=== PATIENT | female | born 1990 | race American Indian/Alaskan Native ===

== ENCOUNTER 2018-06-01 12:01 | Emergency (ER) | payer MEDICAID ==
[2018-06-01 12:42] VITALS: BP 164/84
[2018-06-01 13:01] LABS: Bacteria,Urine 1+ /HPF (Negative); Bilirubin,Urine NEG (Negative); Blood,Urine NEG (Negative); Color,Urine Amber (Yellow); Hyaline Casts,Urine 1 /LPF; Mucus,Urine 2+ /HPF; Protein,Urine <15 mg/dL mg/dL (Negative)
[2018-06-01] MEDS ORDERED: NACL 0.9% 1000 ML 1,000 ML IV ONE ×2 (13:10→13:11)
[2018-06-01] MEDS ORDERED: REGLAN IV ONE (13:11)
--- NOTE | 2018-06-01 13:17 | Emergency Department Report ---
HPI - General Chief Complaint: Nausea/Vomiting/Diarrhea Time Seen by Provider: 06/01/18 13:04 - HPI HPI: Room 17 The patient is a 27-year-old female presenting with a chief complaint of nausea vomiting. Patient states for the past 5 days she's had intractable nausea and vomiting has been unable to keep anything down. Patient states the past 3 days she is constant right-sided abdominal pain. The patient states she is 3 months and was she contacted her [facility] [employer] this morning she was told to come to the ED for evaluation. Patient states she began feeling dizzy. Patient denies fever, dysuria or vaginal bleeding Location: Gastrointestinal system Duration: 5 days Quality: Nausea Severity: Moderate Modifying factors: [see above] Context: [see above] Mode of transportation: [not driving] ED Past Medical Hx - Past Medical History Hx Diabetes: Yes Hx Seizures: Yes (EPILESY) Hx Asthma: Yes - Surgical History Past Surgical History?: No - Family History Family history: no significant - Social History Smoking Status: Never Smoker Substance Use Type: None (denies illicit drug use) - Medications Home Medications: Home Medications Medication Instructions Recorded Confirmed Last Taken Type Metoclopramide [Reglan] 10 mg PO QID PRN #30 tab 06/01/18 Unknown Rx ED Review of Systems ROS: Stated complaint: 3MONTHS /LIGHTHEADED/N/V Other details as noted in HPI Constitutional: no symptoms reported Eyes: denies: eye pain ENT: denies: throat pain Respiratory: no symptoms reported Cardiovascular: denies: chest pain Endocrine: no symptoms reported Gastrointestinal: abdominal pain, nausea, vomiting Genitourinary: denies: dysuria Musculoskeletal: denies: back pain Neurological: denies: headache Physical Exam - Physical Exam Vital Signs: Vital Signs 06/01/18 06/01/18 06/01/18 12:17 12:37 12:38 Temperature 98.4 F Pulse Rate 81 Respiratory 18 Rate Blood Pressure 138/81 164/84 O2 Sat by Pulse 100 100 100 Oximetry 06/01/18 12:39 Temperature Pulse Rate Respiratory Rate Blood Pressure 164/84 O2 Sat by Pulse 100 Oximetry Physical Exam: GENERAL: The patient is well-developed well-nourished female lying on stretcher not appearing to be in acute distress. [] HEENT: Normocephalic. Atraumatic. Extraocular motions are intact. Patient has moist mucous membranes. NECK: Supple. Trachea midline CHEST/LUNGS: Clear to auscultation. There is no respiratory distress noted. HEART/CARDIOVASCULAR: Regular. There is no tachycardia. There is no gallop rub or murmur. ABDOMEN: Abdomen is soft, with mild discomfort to palpation in the suprapubic and right lower quadrant. There is no rebound or guarding patient has normal bowel sounds. There is no abdominal distention. SKIN: There is no rash. There is no edema. There is no diaphoresis. NEURO: The patient is awake, alert, and oriented. The patient is cooperative. The patient has normal speech MUSCULOSKELETAL: There is no evidence of acute injury. ED Course Vital Signs 06/01/18 06/01/18 06/01/18 12:17 12:37 12:38 Temperature 98.4 F Pulse Rate 81 Respiratory 18 Rate Blood Pressure 138/81 164/84 O2 Sat by Pulse 100 100 100 Oximetry 06/01/18 12:39 Temperature Pulse Rate Respiratory Rate Blood Pressure 164/84 O2 Sat by Pulse 100 Oximetry - Reevaluation(s) Reevaluation #1: 06/01/18 17:10 Patient states she feels improved and is able to keep down food and liquids. Her comprehensive metabolic panel needs to be redrawn as her first sample was not resulted. Patient verbalized understanding and states she does not wish to wait to have blood redrawn. I explained the importance of evaluating her electrolytes giving her intractable nausea and vomiting. Patient verbalized understanding but states she would like to leave the hospital AGAINST MEDICAL AD VICE ED Medical Decision Making - Lab Data Result diagrams: 06/01/18 14:00 06/01/18 14:00 Laboratory Tests 06/01/18 06/01/18 06/01/18 12:26 12:34 12:44 WBC RBC Hgb Hct MCV MCH MCHC RDW Plt Count Lymph % (Auto) Fleming % (Auto) Eos % (Auto) Baso % (Auto) Lymph # Fleming # Eos # Baso # Seg Neutrophils % Seg Neutrophils # Sodium Potassium Chloride Carbon Dioxide Anion Gap BUN Creatinine Estimated GFR BUN/Creatinine Ratio Glucose POC Glucose 78 75 Calcium Total Bilirubin AST ALT Alkaline Phosphatase Total Protein Albumin Albumin/Globulin Ratio Lipase HCG, Quant Urine Color Rosie Urine Turbidity Slightly-cloudy Urine pH 6.0 Ur Specific [place] 1.025 Urine Protein <15 mg/dl Urine Glucose (UA) Neg Urine Ketones Tr Urine Blood Neg Urine Nitrite Neg Urine Bilirubin Neg Urine Urobilinogen 2.0 Ur Leukocyte Esterase Neg Urine WBC (Auto) 1.0 Urine RBC (Auto) 3.0 U Epithel Cells (Auto) 11.0 Urine Bacteria (Auto) 1+ Hyaline Casts 1 Urine Mucus 2+ 06/01/18 06/01/18 06/01/18 14:00 14:00 14:00 WBC 4.6 RBC 4.49 Hgb 12.3 Hct 37.3 MCV 83 MCH 27 L MCHC 33 RDW 16.3 H Plt Count 282 Lymph % (Auto) 30.2 Fleming % (Auto) 13.0 H Eos % (Auto) 0.2 Baso % (Auto) 0.4 Lymph # 1.4 Fleming # 0.6 Eos # 0.0 Baso # 0.0 Seg Neutrophils % 56.2 Seg Neutrophils # 2.6 Sodium TNR Potassium TNR Chloride TNR Carbon Dioxide TNR Anion Gap TNR BUN 7 Creatinine 0.7 Estimated GFR > 60 BUN/Creatinine Ratio 10 Glucose TNR POC Glucose Calcium TNR Total Bilirubin TNR AST 93 H ALT TNR Alkaline Phosphatase TNR Total Protein TNR Albumin TNR Albumin/Globulin Ratio TNR Lipase TNR HCG, Quant 23379 H Urine Color Urine Turbidity Urine pH Ur Specific [place] Urine Protein Urine Glucose (UA) Urine Ketones Urine Blood Urine Nitrite Urine Bilirubin Urine Urobilinogen Ur Leukocyte Esterase Urine WBC (Auto) Urine RBC (Auto) U Epithel Cells (Auto) Urine Bacteria (Auto) Hyaline Casts Urine Mucus - Radiology Data Radiology results: report reviewed (pelvic ultrasound), image reviewed (pelvic ultrasound) [address] [address] Ultrasound Report Signed Patient: ROSIE MIR MR#: [id number] : 1990 Acct:[id number] Age/Sex: 27 / F ADM Date: 06/01/18 Loc: ED Attending Dr: Ordering Physician: TAHIRA RODAS MD Date of Service: 06/01/18 Procedure(s): US OB <= 14 weeks fetus Accession Number(s): [id number] cc: TAHIRA RODAS MD FINAL REPORT EXAM: US OB lt; = 14 WEEKS FETUS HISTORY: nausea vomiting, right-sided pain TECHNIQUE: Transabdominal and transvaginal OB ultrasound. PRIORS: None currently available. FINDINGS: Single intrauterine dates 7.3 weeks by crown rump length. BRISA equals January 15, 2019. This is 1 day younger compared to the prior ultrasound and is within normal limits. Intrauterine gestational sac, yolk sac, and pole. No subchorionic bleed. heart rate: 130 BPM. Uterus: 12.8 x 8.0 x 8.7 cm. Multiple fibroids. Largest is at the right fundus measuring 8.4 x 7.5 x 8.7 cm. Right ovary: 2.1 x 1.7 x 2.2 cm. Within normal limits. Left Ovary: Obscured. Adnexal: Unremarkable. No free fluid. IMPRESSION: Single live intrauterine . Uterine fibroids. Left ovary is obscured. Transcribed By: TYM Dictated By: BEA KIM MD Electronically Authenticated By: BEA KIM MD Signed Date/Time: 06/01/181700 DD/ 02 TD/TT: 06/01/181702 - Differential Diagnosis hyperemesis gravidarum, UTI, pancreatitis Critical care attestation.: If time is entered above; I have spent that time in minutes in the direct care of this critically ill patient, excluding procedure time. ED Disposition Clinical Impression: Hyperemesis gravidarum Disposition: LEFT AGAINST MED ADVICE Is pt being admited?: No Does the pt Need Aspirin: No Condition: Undetermined Instructions: Hyperemesis Gravidarum (ED) Additional Instructions: Return to the emergency department immediately should you develop worsening symptoms, fever, inability to tolerate food or liquid or any other concerns. Prescriptions: Metoclopramide [Reglan] 10 mg PO QID PRN #30 tab PRN Reason: Nausea Referrals: PRIMARY CARE, [Primary Care Provider] - 3-5 Days Time of Disposition: 17:13 (patient leaving AMA)
[2018-06-01 14:30] LABS: Basophils % (Auto) 0.4 % (0.0-1.8); Eosinophils % (Auto) 0.2 % (0.0-4.3); Hematocrit 37.3 % (30.3-42.9); Hemoglobin 12.3 gm/dl (10.1-14.3); Lymphocytes # (Auto) 1.4 K/mm3 (1.2-5.4); Lymphocytes % (Auto) 30.2 % (13.4-35.0); Mean Corpuscular HGB Conc 33 % (30-34); Mean Corpuscular Volume 83 fl (79-97); Monocytes # (Auto) 0.6 K/mm3 (0.0-0.8); Platelet Count 282 K/mm3 (140-440); Red Blood Count 4.49 M/mm3 (3.65-5.03); Red Cell Distribution Width 16.3 % (13.2-15.2)
[2018-06-01 14:47] LABS: BUN/Creatinine Ratio 10; Blood Urea Nitrogen 7 mg/dL (7-17); Hemolysis Index 1121
[2018-06-01 15:11] LABS: Alanine Aminotransferase TNR units/L (7-56); Albumin TNR g/dL (3.9-5); Calcium TNR mg/dL (8.4-10.2)
--- NOTE | 2018-06-01 17:01 | Ultrasound Report ---
FINAL REPORT EXAM: US OB <= 14 WEEKS FETUS HISTORY: nausea vomiting, right-sided pain TECHNIQUE: Transabdominal and transvaginal OB ultrasound. PRIORS: None currently available. FINDINGS: Single intrauterine dates 7.3 weeks by crown rump length. BRISA equals January 15, 2019. Thi s is 1 day younger compared to the prior ultrasound and is within normal limits. Intrauterine gestational sac, yolk sac, and pole. No subchorionic bleed. heart rate: 130 BPM. Uterus: 12.8 x 8.0 x 8.7 cm. Multiple fibroids. Largest is at the right fundus measuring 8.4 x 7.5 x 8.7 cm. Right ovary: 2.1 x 1.7 x 2.2 cm. Within normal limits. Left Ovary: Obscured. Adnexal: Unremarkable. No free fluid. IMPRESSION: Single live intrauterine . Uterine fibroids. Left ovary is obscured.
--- NOTE | 2018-06-01 17:01 | Ultrasound Report ---
FINAL REPORT EXAM: US OB TRANSVAGINAL HISTORY: nausea vomiting, right-sided pain TECHNIQUE: Transabdominal and transvaginal OB ultrasound. PRIORS: None currently available. FINDINGS: Single intrauterine dates 7.3 weeks by crown rump length. BRISA equals January 15, 2019. Thi s is 1 day younger compared to the prior ultrasound and is within normal limits. Intrauterine gestational sac, yolk sac, and pole. No subchorionic bleed. heart rate: 130 BPM. Uterus: 12.8 x 8.0 x 8.7 cm. Multiple fibroids. Largest is at the right fundus measuring 8.4 x 7.5 x 8.7 cm. Right ovary: 2.1 x 1.7 x 2.2 cm. Within normal limits. Left Ovary: Obscured. Adnexal: Unremarkable. No free fluid. IMPRESSION: Single live intrauterine . Uterine fibroids. Left ovary is obscured.
== END 2018-06-01 17:32 | disposition left against medical advice (07) ==
LOC: ED 12:01
DX: O21.0 Mild hyperemesis gravidarum (principal); O99.511 Diseases of the respiratory system complicating pregnancy, first trimester; O99.351 Diseases of the nervous system complicating pregnancy, first trimester; G40.909 Epilepsy, unspecified, not intractable, without status epilepticus; O24.911 Unspecified diabetes mellitus in pregnancy, first trimester; Z3A.01 Less than 8 weeks gestation of pregnancy; R10.2 Pelvic and perineal pain
CPT/HCPCS: 36415; 76801; 76817; 80053; 81001; 82962; 84702; 85025; 96361; 96374; 99284; J2765; J7030

== ENCOUNTER 2018-08-16 10:46 | Emergency (ER) | payer MEDICAID ==
[2018-08-16 10:52] VITALS: BP 141/83
[2018-08-16] MEDS ORDERED: TYLENOL PO ONE (11:19)
--- NOTE | 2018-08-16 11:43 | Emergency Department Report ---
ED General Adult HPI - General Chief complaint: Abdominal Pain Stated complaint: 19WKS /TRIPPED AND FELL Time Seen by Provider: 08/16/18 11:15 Source: patient Mode of arrival: Wheelchair Limitations: No Limitations - History of Present Illness Initial comments: Patient is a 28-year-old female possibly 19 weeks who suffered a fall prior to arrival. Patient states that she was walking upstairs and she slipped and hit her right side on the stairs. Patient states the pain is 6 out of 10 in severity hers worse with movement. Patient denies any head injury or loss consciousness. Patient states she did not hit her stomach and she has had no vaginal bleeding. Severity scale (0 -10): 8 - Related Data Previous Rx's Medication Instructions Recorded Last Taken Type Metoclopramide [Reglan] 10 mg PO QID PRN #30 tab 06/01/18 Unknown Rx Cyclobenzaprine [Flexeril] 10 mg PO TID PRN #12 tablet 08/16/18 Unknown Rx Allergies Allergy/AdvReac Type Severity Reaction Status Date / Time No Known Allergies Allergy Unverified 06/01/18 12:16 ED Review of Systems ROS: Stated complaint: 19WKS /TRIPPED AND FELL Other details as noted in HPI Comment: All other systems reviewed and negative ED Past Medical Hx - Past Medical History Hx Diabetes: Yes Hx Seizures: Yes (EPILESY) Hx Asthma: Yes - Surgical History Past Surgical History?: No - Social History Smoking Status: Never Smoker Substance Use Type: None - Medications Home Medications: Home Medications Medication Instructions Recorded Confirmed Last Taken Type Metoclopramide [Reglan] 10 mg PO QID PRN #30 tab 06/01/18 Unknown Rx Cyclobenzaprine [Flexeril] 10 mg PO TID PRN #12 tablet 08/16/18 Unknown Rx ED Physical Exam - General Limitations: No Limitations General appearance: alert, in no apparent distress - Head Head exam: Present: atraumatic, normocephalic - Eye Eye exam: Present: normal appearance - ENT ENT exam: Present: mucous membranes moist - Neck Neck exam: Present: normal inspection - Respiratory Respiratory exam: Present: normal lung sounds bilaterally, chest wall tenderness (right lateral lower ribs. Patient has point tenderness there is no tenderness along the ribs. No external bruising.). Absent: respiratory distress, wheezes, rales, rhonchi - Cardiovascular Cardiovascular Exam: Present: regular rate, normal rhythm, normal heart sounds. Absent: systolic murmur, diastolic murmur, rubs, gallop - GI/Abdominal GI/Abdominal exam: Present: soft, normal bowel sounds. Absent: distended, tenderness, guarding, rebound - Extremities Exam Extremities exam: Present: normal inspection - Back Exam Back exam: Present: normal inspection - Neurological Exam Neurological exam: Present: alert, oriented X3 - Psychiatric Psychiatric exam: Present: normal affect, normal mood - Skin Skin exam: Present: warm, dry, intact, normal color. Absent: rash ED Course Vital Signs 08/16/18 08/16/18 10:48 11:25 Temperature 98 F Pulse Rate 93 H Respiratory 16 18 Rate Blood Pressure 141/83 O2 Sat by Pulse 96 Oximetry ED Medical Decision Making - Medical Decision Making Patient's tenderness is minimal. Patient likely with rib contusion as opposed to a rib fracture. Pressing on her anterior posterior chest together there is no pain at the lateral ribs. Lungs are clear to auscultation. Patient be treated for muscular skeletal pain to be discharged home. Critical care attestation.: If time is entered above; I have spent that time in minutes in the direct care of this critically ill patient, excluding procedure time. ED Disposition Clinical Impression: Rib contusion Qualifiers: Encounter type: initial encounter Laterality: right Qualified Code(s): S20.211A - Contusion of right front wall of thorax, initial encounter Disposition: DC-01 TO HOME OR SELFCARE Is pt being admited?: No Does the pt Need Aspirin: No Condition: Stable Instructions: Costochondritis (ED) Time of Disposition: 11:46
== END 2018-08-16 11:51 | disposition home or self-care (01) ==
LOC: ED 10:46
DX: O9A.212 Injury, poisoning and certain other consequences of external causes complicating pregnancy, second trimester (principal); S20.211A Contusion of right front wall of thorax, initial encounter; O24.112 Pre-existing type 2 diabetes mellitus, in pregnancy, second trimester; E11.9 Type 2 diabetes mellitus without complications; Z3A.19 19 weeks gestation of pregnancy
CPT/HCPCS: 99282

== ENCOUNTER 2018-08-27 11:09 | Outpatient (CLI) | payer MEDICAID ==
[2018-08-27] MEDS ORDERED: LACTATED RINGERS 500 ML IV ONE (12:13)
[2018-08-27 12:27] LABS: Basophils % (Auto) 0.4 % (0.0-1.8); Eosinophils # (Auto) 0.2 K/mm3 (0.0-0.4); Eosinophils % (Auto) 2.6 % (0.0-4.3); Hematocrit 33.8 % (30.3-42.9); Hemoglobin 11.3 gm/dl (10.1-14.3); Lymphocytes # (Auto) 1.6 K/mm3 (1.2-5.4); Lymphocytes % (Auto) 24.3 % (13.4-35.0); Mean Corpuscular HGB Conc 34 % (30-34); Mean Corpuscular Volume 83 fl (79-97); Monocytes # (Auto) 0.7 K/mm3 (0.0-0.8); Monocytes % (Auto) 10.4 % (0.0-7.3); Platelet Count 255 K/mm3 (140-440); Red Blood Count 4.08 M/mm3 (3.65-5.03); Red Cell Distribution Width 15.8 % (13.2-15.2)
[2018-08-27 12:48] LABS: Alanine Aminotransferase 12 units/L (7-56); Albumin 3.5 g/dL (3.9-5); BUN/Creatinine Ratio 5; Blood Urea Nitrogen 2 mg/dL (7-17); Calcium 8.6 mg/dL (8.4-10.2); Hemolysis Index 21
[2018-08-27] MEDS ORDERED: ZOFRAN IV ONE (13:47)
[2018-08-28 18:54] VITALS: BP 120/57
== END 2018-08-27 15:18 | disposition home or self-care (01) ==
LOC: TRG 11:09
PROVIDERS: ATTEND Obstetrics & Gynecology
DX: O21.0 Mild hyperemesis gravidarum (principal); O47.03 False labor before 37 completed weeks of gestation, third trimester; Z72.89 Other problems related to lifestyle; Z3A.20 20 weeks gestation of pregnancy
CPT/HCPCS: 36415; 80053; 85025; J7120; 96360; 96374; J2405

== ENCOUNTER 2018-11-05 19:34 | Outpatient (CLI) | payer MEDICAID ==
[2018-11-05] MEDS ORDERED: LACTATED RINGERS 1,000 ML IV ONE ×2 (21:30→23:45)
[2018-11-05 23:06] LABS: Bilirubin,Urine NEG (Negative); Blood,Urine NEG (Negative); Color,Urine Straw (Yellow); Mucus,Urine FEW /HPF; Protein,Urine <15 mg/dL mg/dL (Negative); Urobilinogen,Urine < 2.0 mg/dL (<2.0)
[2018-11-05] MEDS ORDERED: BRETHINE SUB-Q ONE (23:11)
[2018-11-05] MEDS ORDERED: BRETHINE ONE (23:11)
[2018-11-05 23:13] LABS: RBC,Urine < 1.0 /HPF (0.0-6.0)
--- NOTE | 2018-11-05 23:26 | Ultrasound Report ---
PROCEDURE: US OB LIMITED TECHNIQUE: Ultrasound obstetrical limited HISTORY: vaginal spotting blood clot COMPARISONS: FINDINGS: Single live intrauterine gestation present in cephalic position. cardiac activity is present wi th heart rate of 148/m Cervix is 4.9 cm in length. The placenta is posterior and left lateral. Noted are prominent vascular structures seen posterior an d just adjacent to the placenta without evidence for hematoma. IMPRESSION: Prominent vascular structure seen posterior and just adjacent to the placenta significances of this i s uncertain. No definitive evidence for placental abruption Single live intrauterine gestation in cephalic position. This document is electronically signed by Jaren Salas MD., November 05 2018 11:24:19 PM ET
[2018-11-05] MEDS ORDERED: BRETHINE SUB-Q SCH (23:45)
[2018-11-06] MEDS ORDERED: ZOFRAN IV ONE (00:33)
[2018-11-06 01:02] VITALS: BP 113/57
== END 2018-11-06 01:16 | disposition home or self-care (01) ==
LOC: TRG 19:34
PROVIDERS: ATTEND Obstetrics & Gynecology
DX: O26.853 Spotting complicating pregnancy, third trimester (principal); O24.013 Pre-existing type 1 diabetes mellitus, in pregnancy, third trimester; E10.9 Type 1 diabetes mellitus without complications; O99.343 Other mental disorders complicating pregnancy, third trimester; F31.9 Bipolar disorder, unspecified; F20.9 Schizophrenia, unspecified; F41.9 Anxiety disorder, unspecified; Z3A.30 30 weeks gestation of pregnancy
CPT/HCPCS: 59025; 76815; 81001; 82962; 96360; 96361; 96372; 96374; J2405; J3105; J7120

== ENCOUNTER 2018-11-12 11:52 | Outpatient (CLI) | payer MEDICAID ==
[2018-11-12] MEDS ORDERED: LACTATED RINGERS 500 ML IV ONE (13:16)
[2018-11-12 13:27] VITALS: BP 120/74
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
== END 2018-11-12 14:59 | disposition home or self-care (01) ==
LOC: TRG 11:52
PROVIDERS: ATTEND Obstetrics & Gynecology
DX: O47.03 False labor before 37 completed weeks of gestation, third trimester (principal); Z3A.31 31 weeks gestation of pregnancy
CPT/HCPCS: 59025; 76815; 76819

== ENCOUNTER 2019-01-06 19:35 | Inpatient (IN) | payer MEDICAID ==
[2019-01-06] MEDS ORDERED: LACTATED RINGERS 1,000 ML IV ONE (20:30)
[2019-01-06] MEDS ORDERED: LACTATED RINGERS 1,000 ML ONE (20:45)
[2019-01-06 22:00] LABS: Basophils % (Auto) 0.4 % (0.0-1.8); Eosinophils % (Auto) 0.1 % (0.0-4.3); Hematocrit 33.6 % (30.3-42.9); Hemoglobin 11.6 gm/dl (10.1-14.3); Lymphocytes # (Auto) 1.9 K/mm3 (1.2-5.4); Lymphocytes % (Auto) 23.2 % (13.4-35.0); Mean Corpuscular HGB Conc 34 % (30-34); Mean Corpuscular Volume 80 fl (79-97); Monocytes # (Auto) 0.7 K/mm3 (0.0-0.8); Monocytes % (Auto) 9.3 % (0.0-7.3); Platelet Count 312 K/mm3 (140-440); Red Cell Distribution Width 16.4 % (13.2-15.2)
[2019-01-06] MEDS ORDERED: CERVIDIL VG ONE (22:00)
[2019-01-07] MEDS ORDERED: ZOFRAN ONE (00:23)
[2019-01-07] MEDS: LACTATED RINGERS 1,000 ML IV SCH ×2 (00:25→19:17)
--- NOTE | 2019-01-07 02:07 | History and Physical Report ---
History of Present Illness Date of examination: 01/07/19 (pt presents for IOL @ 39 weeks as per [facility] recommendation) Date of admission: 01/06/19 19:35 History of present illness: EDC Confirmation: 01/14/2019 Gestational Age: 15 4/7 weeks Past History : 1 Term Births: 0 Premature Births: 0 Living Children: 0 Para: 0 Mult. Births: 0 Prev : 0 Prev. attempt? 0 Aborta: 0 Elect. Ab: 0 Spont. Ab: 0 Ectopics: 0 Past Medical History: seizure disorder- was on lamictal, tegretol, dilantin-stopped all meds 2 months ago. last seizure 9 months ago type 2 diabetes-was on metformin, not taking since 9 months ago. managed by primary care [place] [facility] asthma-uses advair and albuterol, last inhaler use over a year ago anxiety and depression 8 cm fibroid takes tylenol #3 for pain rx [facility] h/o suicide attempts-cutting arms-sees Dr. 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 Past Medical History Abnormal PAP: positive TANO Exposure: negative Infertility: negative Uterine Anomaly: negative Uterine Surgery (not C/S): negative Other Gynecologic Problems: negative Family Hx: mgm-DM, HTN sister-asthma, "delayed" unknown diagnosis mother- fibroids Social Hx: same sex couple-lives with partner and partner's child denies any ETOH or tobacco use, admits to marijuana pt on disability for psych Infection History Hx of STD: none HIV Risk Eval: negative HIV test since possible exposures Hepatitis B Risk Eval: low risk Personal hx. of genital herpes: no Partner hx. of genital herpes: no Rash, Viral, or Febrile illness since last LMP? no Varicella/Chicken Pox Status: Unknown TB Risk: no Infection History Comments: ex partner +HIV HSV1 serum + Genetic History Congenital Heart Defect: Mom: no Dad: unknown Freddie Disease: Mom: no Dad: unknown Thalassemia Mom: no Dad: unknown Neural Tube Defect Mom: no Dad: unknown Down's Syndrome Mom: no Dad: unknown Herbert-Sachs Mom: no Dad: unknown Sickle Cell Disease/Trait Mom: no Dad: unknown Hemophilia Mom: no Dad: unknown Muscular Dystrophy Mom: no Dad: unknown Cystic Fibrosis Mom: no Dad: unknown Lara Chorea Mom: no Dad: unknown Mental Retardation Mom: no Dad: unknown Fragile X Mom: no Dad: unknown Other Genetic/Chromosomal Disorder Mom: no Dad: unknown Child w/other defect Mom: no Dad: unknown Enviromental Exposures Enviromental Exposures Reviewed Xray Exposure: no Medication, drug, or alcohol use since LMP: no Chemical/Other Exposure: no Exposure to Cat Liter: no Hx of Parvovirus (Fifth Disease): no Occupational Exposure to Children: none Active Medications (reviewed today): Current Allergies (reviewed today): * PCN (Critical) Past History - Obstetrical History Expected Date of Delivery: 01/14/19 Actual Gestation: 39 Week(s) 0 Day(s) : 1 Para: 0 Hx # Term Pregnancies: 0 Number of Pregnancies: 0 Spontaneous Abortions: 0 Induced : 0 Number of Living Children: 0 Medications and Allergies Allergies Allergy/AdvReac Type Severity Reaction Status Date / Time lorazepam [From Ativan] Allergy Rash Verified 11/05/18 21:04 Penicillins Allergy Angioedema Verified 11/05/18 21:04 risperidone [From Risperdal] Allergy Rash Verified 11/05/18 21:04 Home Medications Medication Instructions Recorded Confirmed Last Taken Type No Known Home Medications [No 11/05/18 11/05/18 Unknown History Reported Home Medications] Active Meds: Active Medications Famotidine (Pepcid) 20 mg IV QDAY CED Lactated Ringer's (Lactated Ringers) 1,000 mls @ 125 mls/hr IV DIRECT CED Last Admin: 01/07/19 00:25 Dose: 125 mls/hr Documented by: Oxytocin/Sodium Chloride (Pitocin/Ns 30 Unit/500ml) 30 units in 500 mls @ 2 mls/hr IV TITR CED; Protocol - Vital Signs Vital signs: Vital Signs Pulse BP 83 144/76 01/06/19 19:57 01/06/19 19:57 Temp Pulse Resp BP Pulse Ox 98.8 F 86 142/73 100 01/06/19 21:54 01/07/19 01:58 01/07/19 00:19 01/07/19 01:58 - Physical Exam Breasts: Positive: deferred Cardiovascular: Regular rate, Normal S1, Normal S2 Lungs: Positive: Normal air movement Abdomen: Positive: normal appearance, soft, normal bowel sounds. Negative: distention, tenderness Genitourinary (Female): Positive: normal external genitalia Vulva: both: normal Vagina: Positive: normal moisture. Negative: discharge Cervix: Negative: lesion, discharge Uterus: Positive: normal size, normal contour Adnexa: both: normal Anus/Rectum: Positive: normal perianal skin, heme negative. Negative: rectal mass, hemorrhoids Extremities: Positive: edema Deep Tendon Reflex Grade: Normal +2 - Obstetrical FHR: category 1 Uterine Contraction Monitor Mode: External Cervical Dilatation: 1.5 (vtx) Cervical Effacement Percentage: 50 station: -2 Uterine Contraction Frequency (min): q2-3 Uterine Contraction Duration: 50 Uterine Contraction Pattern: Regular Uterine Tone Measurement Phase: Resting Uterine Contraction Intensity: Moderate Results Result Diagrams: 01/06/19 20:24 Abnormal lab results 01/06/19 Range/Units 20:24 RDW 16.4 H (13.2-15.2) % [place] % (Auto) 9.3 H (0.0-7.3) % All other labs normal. GBS Negative HBsAg Screen Negative Negative *1 RPR Non Reactive Non Reactive *2 Rubella Antibodies, IgG 4.60 index Immune >0.99 *3 Non-immune <0.90 Equivocal 0.90 - 0.99 Immune >0.99 ABO Grouping B *4 Rh Factor Positive *5 Please note: Prior records for this patient's ABO / Rh type are not available for additional verification. Antibody Screen Negative Negative *6 WBC 5.2 x10E3/uL 3.4-10.8 *7 RBC 4.20 x10E6/uL 3.77-5.28 *8 Hemoglobin 11.1 g/dL 11.1-15.9 *9 Hematocrit [L] 33.4 % 34.0-46.6 *10 MCV 80 fL 79-97 *11 MCH [L] 26.4 pg 26.6-33.0 *12 MCHC 33.2 g/dL 31.5-35.7 *13 RDW [H] 16.6 % 12.3-15.4 *14 Platelets 260 x10E3/uL 150-379 *15 Neutrophils 59 % Not Estab. *16 Lymphs 30 % Not Estab. *17 Monocytes 11 % Not Estab. *18 Eos 0 % Not Estab. *19 Basos 0 % Not Estab. *20 ! Immature Cells <No Reported Value> *21 Neutrophils (Absolute) 3.1 x10E3/uL 1.4-7.0 *22 Lymphs (Absolute) 1.5 x10E3/uL 0.7-3.1 *23 Monocytes(Absolute) 0.6 x10E3/uL 0.1-0.9 *24 Eos (Absolute) 0.0 x10E3/uL 0.0-0.4 *25 Baso (Absolute) 0.0 x10E3/uL 0.0-0.2 *26 ! Immature Granulocytes 0 % Not Estab. *27 ! Immature Grans (Abs) 0.0 x10E3/uL 0.0-0.1 *28 ! NRBC <No Reported Value> *29 Hematology Comments: <No Reported Value> *30 Tests: (2) AFP Tetra ([id number]) ! Results Report *31 ! Test Results: *Screen Negative* *32 Tests: (3) Panel 562564 ([id number]) HIV Screen 4th Generation wRfx Non Reactive Non Reactive *55 Tests: (4) Varicella-Zoster V Ab, IgG ([id number]) ! Varicella Zoster IgG 1666 index Immune >165 *56 Negative <135 Equivocal 135 - 165 Positive >165 A positive result generally indicates exposure to the pathogen or administration of specific immunoglobulins, but it is not indication of active infection or stage of disease. Tests: (5) HCV Ab w/Rflx to Verification ([id number]) ! HCV Ab <0.1 s/co ratio 0.0-0.9 *57 Tests: (6) Comment: ([id number]) ! Comment: SPRCS *58 Non reactive HCV antibody screen is consistent with no HCV infection, unless recent infection is suspected or other evidence exists to indicate HCV infection. Tests: (7) Urine Culture, Routine ([id number]) Urine Culture, Routine Final report *59 Tests: (8) Result ([id number]) ! Result 1 No growth *60 Assessment and Plan Pt is a 28yo @ 39w0d today here for IOL due to DM(no meds) and a new DX of IUGR. GBS is negative Cervidil not placed due to frequent ctx, will use low dose pitocin. SVE 1-2 thick,-2, vertex. All questions addressed. Orders in EMR - Patient Problems (1) 39 weeks gestation of Onset Date: ~01/07/19 Current Visit: Yes Status: Acute (2) Diabetes mellitus Onset Date: ~01/07/19 Current Visit: Yes Status: Acute Qualifiers: Diabetes mellitus type: type 2 Diabetes mellitus ferry terminal supervisor insulin use: without ferry terminal supervisor use Diabetes mellitus complication status: without complication Qualified Code(s): E11.9 - Type 2 diabetes mellitus without complications (3) Herpes Onset Date: ~01/07/19 Current Visit: Yes Status: Acute Plan to address problem: HSV1 no medication @ this time (4) Seizure disorder Onset Date: ~01/07/19 Current Visit: Yes Status: Acute Plan to address problem: Pt has not had a seizure in 9 months Not on any medications (5) Depression Onset Date: ~01/07/19 Current Visit: Yes Status: Acute Qualifiers: Depression Type: major depressive disorder Major depression recurrence: unspecified whether recurrent Active/Remission status: in remission of unspecified degree Qualified Code(s): F32.5 - Major depressive disorder, single episode, in full remission Plan to address problem: Pt is being followed by psych throughout (6) History of attempted suicide Onset Date: ~01/07/19 Current Visit: Yes Status: Acute Plan to address problem: Pt is being followed by psych throughout (7) IUGR (intrauterine growth restriction) affecting care of mother Onset Date: ~01/07/19 Current Visit: Yes Status: Acute Qualifiers: Fetus number: single or unspecified fetus Trimester: third trimester Qualified Code(s): O36.5930 - Maternal care for other known or suspected poor growth, third trimester, not applicable or unspecified Plan to address problem: IOL recommended by AMFM @ 39 weeks with new dx of IUGR
[2019-01-07] MEDS ORDERED: PEPCID IV ONE (02:21)
[2019-01-07] MEDS ORDERED: AMBIEN PO PRN (02:28)
[2019-01-07] MEDS ORDERED: ZOFRAN IV PRN ×2 (02:33→20:58)
[2019-01-07] MEDS ORDERED: BRETHINE SUB-Q PRN (02:33)
[2019-01-07] MEDS ORDERED: MINERAL OIL PO PRN (02:33)
[2019-01-07] MEDS ORDERED: SUBLIMAZE IV PRN (02:33)
[2019-01-07] MEDS ORDERED: XYLOCAINE 2% INFILTRATI ONE (02:33)
[2019-01-07] MEDS ORDERED: PITOCin/NS 30 UNIT/500ML 30 UNITS/500 ML BAG IV SCH ×2 (03:00→09:00)
[2019-01-07] MEDS ORDERED: PITOCin/NS 20 UNIT/1000ML DRIP 20 UNITS/1,000 ML BAG IV SCH ×2 (03:00→21:00)
[2019-01-07] MEDS ORDERED: LACTATED RINGERS 1,000 ML IV SCH (03:00)
--- NOTE | 2019-01-07 07:47 | Progress Note ---
Assessment and Plan 28 y.o. IUP at 39w0d Patient resting in bed, she denies any complaints other than "headache like I have been getting everyday, they are my usual migraines, tylenol always helps". Tylenol ordered for ALVA pain. Pt to report if pain is unrelieved. She denies any other complaints such as visual disturbances, RUQ pain/epigastric pain, chest pain, SOB, difficulty breathing. vssaf. patient reports feeling :crampy: throughout the night, again "no different than usual". plan to discontinue pitocin at this time, allow patient to ambulate, shower, and eat before starting pitocin for induction. pt understands to attempt to be back to bed and on the monitor within an hour. Subjective - Subjective Date of service: 01/07/19 Principal diagnosis: Scheduled IOL for IUGR, DM per MFM recommendation Patient reports: movement normal, contractions (mild, irregular "no different than I've been feeling every day this "), no new complaints, no loss of fluid, no vaginal bleeding Objective - Vital Signs Vital Signs: Vital Signs - 12hr 01/06/19 01/06/19 01/06/19 19:57 20:21 21:54 Temperature 98.8 F Pulse Rate 83 69 Blood Pressure 144/76 133/78 O2 Sat by Pulse Oximetry 01/06/19 01/06/19 01/07/19 23:52 23:57 00:02 Temperature Pulse Rate 75 75 74 Blood Pressure O2 Sat by Pulse 100 100 100 Oximetry 01/07/19 01/07/19 01/07/19 00:04 00:07 00:12 Temperature Pulse Rate 83 79 75 Blood Pressure O2 Sat by Pulse 92 100 100 Oximetry 01/07/19 01/07/19 01/07/19 00:15 00:17 00:19 Temperature Pulse Rate 80 76 85 Blood Pressure 142/73 O2 Sat by Pulse 90 100 Oximetry 01/07/19 01/07/19 01/07/19 00:22 00:27 00:32 Temperature Pulse Rate 91 H 85 78 Blood Pressure O2 Sat by Pulse 100 100 100 Oximetry 01/07/19 01/07/19 01/07/19 00:37 00:42 00:53 Temperature Pulse Rate 77 87 53 L Blood Pressure O2 Sat by Pulse 100 100 93 Oximetry 0801/07/19 01/07/19 00:58 01:03 01:08 Temperature Pulse Rate 70 82 80 Blood Pressure O2 Sat by Pulse 100 100 100 Oximetry 01/07/19 01/07/19 01/07/19 01:13 01:15 01:18 Temperature Pulse Rate 75 79 82 Blood Pressure O2 Sat by Pulse 100 92 100 Oximetry 01/07/19 01/07/19 01/07/19 01:21 01:23 01:28 Temperature Pulse Rate 91 H 95 H 81 Blood Pressure O2 Sat by Pulse 90 91 100 Oximetry 01/07/19 01/07/19 01/07/19 01:33 01:38 01:43 Temperature Pulse Rate 81 79 80 Blood Pressure O2 Sat by Pulse 100 100 100 Oximetry 01/07/19 01/07/19 01/07/19 01:48 01:52 01:53 Temperature Pulse Rate 91 H 79 73 Blood Pressure O2 Sat by Pulse 100 91 100 Oximetry 01/07/19 01/07/19 01/07/19 01:58 02:03 04:47 Temperature Pulse Rate 86 100 H 79 Blood Pressure 130/76 O2 Sat by Pulse 100 100 Oximetry 01/07/19 07:43 Temperature Pulse Rate 81 Blood Pressure 110/58 O2 Sat by Pulse Oximetry - Exam Cardiovascular: Regular rate, Normal S1, Normal S2 Lungs: Clear to auscultation, Normal air movement Abdomen: Present: normal appearance, soft, normal bowel sounds. Absent: distention, tenderness Vulva: both: normal (no lesions noted on examination) Uterus: Present: normal FHR: auscultation normal Uterine Contraction Monitor Mode: External Cervical Dilatation: 3.5 Cervical Effacement Percentage: 60 station: -3 Uterine Contraction Pattern: Irregular Uterine Tone Measurement Phase: Contraction Uterine Contraction Intensity: Mild Extremities: normal Deep Tendon Reflex Grade: Normal +2 - Labs Labs: Abnormal Labs 01/06/19 20:24 RDW 16.4 H [place] % (Auto) 9.3 H Laboratory Results - last 24 hr 01/06/19 01/06/19 01/06/19 20:24 20:24 20:57 WBC 8.0 RBC 4.20 Hgb 11.6 Hct 33.6 MCV 80 MCH 28 MCHC 34 RDW 16.4 H Plt Count 312 Lymph % (Auto) 23.2 [place] % (Auto) 9.3 H Eos % (Auto) 0.1 Baso % (Auto) 0.4 Lymph # 1.9 [place] # 0.7 Eos # 0.0 Baso # 0.0 Seg Neutrophils % 67.0 Seg Neutrophils # 5.4 POC Glucose 78 Blood Type B POSITIVE Antibody Screen Negative
[2019-01-07] MEDS ORDERED: PEPCID IV SCH (10:00)
[2019-01-07] MEDS: TYLENOL PO PRN ×2 (10:25→12:56)
[2019-01-07 11:41] LABS: Amphetamine Screen,Urine PRESUMPTIVE NEGATIVE; Benzodiazepines Screen,Urine PRESUMPTIVE NEGATIVE; Cannabinoid Screen,Urine PRESUMPTIVE NEGATIVE; Cocaine Screen,Urine PRESUMPTIVE NEGATIVE; Methadone Screen,Urine PRESUMPTIVE NEGATIVE; Opiate Screen,Urine PRESUMPTIVE NEGATIVE
--- NOTE | 2019-01-07 13:22 | Event Note ---
Date: 01/07/19 SVE /-3, ballotable, vertex. Unable to SROM. Pitocin currently on 26mu/min, pt uncomfortable with contractions, palpating moderate, TOCO adjusted, appear to be every 2 minutes. FHTs cat 1. VSSAF. Continue current POC.
--- NOTE | 2019-01-07 14:35 | Event Note ---
Date: 01/07/19 Called to bedside by RN- reports pt is refusing monitoring and demanding to speak to provider face to face. On arrival, patient on left side, FHTs tracing. Pt reports extreme back pain, still declines/refused any pain intervention or epidural. She is requesting to walk around. Patient encouraged to get out of bed, change positions frequently, as long as we can monitory FHTs to ensure safety of fetus with pitocin infusing. Pt made aware that she can refuse monitoring, but we will have to discontinue pitocin. Pt reminded that IOL is a recommendation per MFM, and indications reviewed, but that patient has the right to refuse/decline recommendations. Pt states she would like to try to sit in the chair. Pt repositioned to chair, FHTs remain able to be traced and cat 1. Contractions q2-3 minutes, palpating moderate. Will continue to monitor.
[2019-01-07] MEDS: STADOL IV PRN ×2 (16:56→19:15)
--- NOTE | 2019-01-07 17:32 | Event Note ---
Date: 01/07/19 Called to bedside by RN d/t pt "wanting to talk about a c/s". Dr. Pro present at bedside. Pt reports back pain is getting more intense. SVE remains unchanged from last exam. Dr. Pro dwp indications and risks for c/s delivery. patient declines at this time, desires to continue pitocin. continues to refuse/decline any pain management interventions and/or epidural. continue current POC. vssaf/
[2019-01-07] MEDS ORDERED: METHERGINE IM ONE (19:57)
--- NOTE | 2019-01-07 20:57 | Procedure Note ---
OB Delivery Note - Delivery Date of Delivery: 01/07/19 [employer] Operations Division: MABEL ZABALA Estimated blood loss: 500cc - Vaginal Delivery presentation: vertex Delivery position: OA Intrapartum events: hemorrhage Delivery induction: oxytocin Delivery monitor: internal FHT, internal uterine Route of delivery: Delivery placenta: spontaneous, other (sent to pathology, IUGR, DM) Delivery cord: nuchal cord (x1, loose, easily reduced), 3 umbilical vessels Episiotomy: none Delivery laceration: 1st degree Delivery repair: vicryl Anesthesia: local, intravenous Delivery comments: of viable female infant over intact perineum. Loose nuchal x1 noted after delivery of head, reduced without difficulty. remainder of body delivered without difficulty. infant placed skin to skin on mother's abdomen. drying and stimulation produces vigorous cry. cord clamped x2 upon cessation of pulsation and cut by mothers partner. Placenta delivered complete and intact, 3vc. 1st degree perineal laceration repaired in the normal fashion with lidocaine. uterus boggy on fundal massage, methergen and cytotec given with pt permission. FF, ML, hemostasis achieved. EBL 500. vssaf. bill care provided. apgars 8/9, wt 6#1. mother and infant remain ldr stable. - Infant A at 1 minute: 8 at 5 minutes: 9 Gender: Female (6#1)
[2019-01-07] MEDS ORDERED: TYLENOL PO PRN (20:58)
[2019-01-07] MEDS ORDERED: MILK OF MAGNESIA PO PRN (20:58)
[2019-01-07] MEDS ORDERED: LANSINOH TP PRN (20:58)
[2019-01-07] MEDS ORDERED: TUCKS PAD TP PRN (20:58)
[2019-01-07] MEDS ORDERED: BENADRYL PO PRN (20:58)
[2019-01-07] MEDS ORDERED: DULCOLAX PR PRN (20:58)
[2019-01-07] MEDS ORDERED: SODIUM CHLORIDE FLUSH SYRINGE 10 ML IV NR (21:00)
[2019-01-07] MEDS: IBUPROFEN PO SCH (23:23)
[2019-01-07] MEDS: COLACE PO SCH (23:24)
[2019-01-07] MEDS: FEOSOL PO SCH (23:24)
[2019-01-08] MEDS ORDERED: BOOSTRIX IM ONE (06:00)
[2019-01-08] MEDS: IBUPROFEN PO SCH ×4 (06:37→23:08)
--- NOTE | 2019-01-08 07:46 | Progress Note ---
Assessment and Plan <12hrs , doing well, acting appropriately. no complaints. VSSAF, lochia scant, blood sugars NL. H&H ordered for 0900. no s/s anemia. Encouraged breast feeding and rest. family support at bedside. - Patient Problems (1) (spontaneous vaginal delivery) Current Visit: Yes Status: Acute Plan to address problem: continue pathway (2) Depression Onset Date: ~01/07/19 Current Visit: Yes Status: Acute Qualifiers: Depression Type: major depressive disorder Major depression recurrence: unspecified whether recurrent Active/Remission status: in remission of unspecified degree Qualified Code(s): F32.5 - Major depressive disorder, single episode, in full remission Plan to address problem: high risk for PPD monitor for s/s worsening depression (3) Diabetes mellitus Onset Date: ~01/07/19 Current Visit: Yes Status: Acute Qualifiers: Diabetes mellitus type: type 2 Diabetes mellitus intermediate insulin use: without terminal computer operator use Diabetes mellitus complication status: without complication Qualified Code(s): E11.9 - Type 2 diabetes mellitus without complications Plan to address problem: monitor blood sugars report abnormal results to provider Subjective - Subjective Date of service: 01/08/19 Principal diagnosis: day #1 s/p Patient reports: appetite normal, voiding normally, pain well controlled, ambulating normally, no dizzy ambulation, no nauseated [place]: doing well, nursing well (breast and bottle feeding) Objective - Vital Signs Latest vital signs: Vital Signs Temp Pulse Resp BP BP BP Pulse Ox 01/08/19 06:37 20 01/08/19 05:22 99.0 F 86 20 107/74 99 01/07/19 23:23 20 01/07/19 23:12 98.1 F 70 20 128/58 98 01/07/19 20:15 64 117/72 01/07/19 19:15 22 01/07/19 18:19 87 01/07/19 18:18 101 H 88 01/07/19 18:17 78 122/58 01/07/19 18:14 97.8 F 50 L 22 122/58 85 01/07/19 18:08 77 89 01/07/19 18:03 82 L 01/07/19 18:02 52 L 62 L 01/07/19 17:58 93 H 93 01/07/19 17:55 95 H 100 01/07/19 17:50 80 100 01/07/19 17:45 77 98 01/07/19 17:40 76 98 01/07/19 17:35 73 97 01/07/19 17:30 69 97 01/07/19 17:25 67 99 01/07/19 17:20 73 99 01/07/19 17:15 70 99 01/07/19 17:10 81 98 01/07/19 17:05 78 97 01/07/19 17:00 74 99 01/07/19 16:56 18 01/07/19 16:55 92 H 98 01/07/19 16:50 73 100 01/07/19 16:48 98.5 F 75 20 125/71 125/71 01/07/19 16:06 76 100 01/07/19 16:01 77 100 01/07/19 15:56 93 H 100 01/07/19 15:51 77 99 01/07/19 15:46 85 100 01/07/19 15:41 79 100 01/07/19 15:36 78 99 01/07/19 15:33 53 L 87 01/07/19 15:32 76 100 01/07/19 15:26 91 H 99 01/07/19 15:21 70 100 01/07/19 15:15 71 99 01/07/19 15:10 87 100 01/07/19 15:05 79 99 01/07/19 15:00 77 100 01/07/19 14:55 77 100 01/07/19 14:50 73 100 01/07/19 14:45 80 100 01/07/19 14:40 70 100 01/07/19 14:35 74 100 01/07/19 14:30 84 100 01/07/19 14:25 73 100 01/07/19 14:20 75 99 01/07/19 14:15 84 100 01/07/19 14:10 86 100 01/07/19 14:05 81 99 01/07/19 14:00 70 99 01/07/19 13:55 81 100 01/07/19 13:50 82 98 01/07/19 13:45 86 98 01/07/19 13:40 78 100 01/07/19 13:35 81 99 01/07/19 13:33 88 109/62 01/07/19 13:30 87 99 01/07/19 13:25 81 99 01/07/19 13:20 78 100 01/07/19 13:15 79 99 01/07/19 13:10 66 100 01/07/19 13:05 80 100 01/07/19 13:00 78 99 01/07/19 12:56 18 01/07/19 12:55 84 100 01/07/19 12:50 81 100 01/07/19 12:45 81 100 01/07/19 12:40 78 99 01/07/19 12:39 98.6 F 75 18 111/59 01/07/19 12:38 78 111/59 01/07/19 12:35 88 98 01/07/19 12:30 87 100 01/07/19 12:25 97 H 100 01/07/19 12:20 90 99 01/07/19 12:15 88 99 01/07/19 12:10 96 H 100 01/07/19 12:05 79 99 01/07/19 12:00 86 98 01/07/19 11:55 70 98 01/07/19 11:50 87 98 01/07/19 11:45 71 98 01/07/19 11:40 79 99 01/07/19 11:35 79 99 01/07/19 11:30 77 99 01/07/19 11:25 95 H 100 01/07/19 11:20 83 100 01/07/19 11:15 77 100 01/07/19 11:10 80 100 01/07/19 11:05 75 95 01/07/19 08:49 80 L 01/07/19 08:44 92 H 78 L 01/07/19 08:43 77 L 01/07/19 08:10 80 100 01/07/19 08:05 80 100 01/07/19 08:00 91 H 100 01/07/19 07:55 84 100 01/07/19 07:50 83 100 01/07/19 07:48 98.3 F 95 H 16 110/58 01/07/19 07:45 83 100 01/07/19 07:43 81 110/58 Intake and Output 01/07/19 01/07/19 01/08/19 15:59 23:59 07:59 Intake Total 1125.133 26 240 Output Total 500 1100 Balance 625.133 26 -860 Intake: IV 1125.133 26 Lactated Ringers 1,000 ml 1000 @ 125 mls/hr IV DIRECT CED Rx#:[id number] PITOCin/NS 30 UNIT/500ML 125.133 26 30 units In 500 ml @ 4 MILLIUNITS/MIN 4 mls/hr IV TITR CED Rx#:[id number] Oral 240 Output: Urine 500 1100 Void 500 1100 Other: Total, Intake Amount 240 Total, Output Amount 500 800 # Voids Void 1 Estimated Blood Loss 450 - Exam Breasts: Present: normal, Cardiovascular: Present: Regular rate Lungs: Present: Clear to auscultation, Normal air movement Abdomen: Present: normal appearance, soft, normal bowel sounds Vulva: both: normal Uterus: Present: normal, firm, fundal height at umbilicus Extremities: Present: normal
[2019-01-08 09:07] LABS: Hematocrit 27.9 % (30.3-42.9)
[2019-01-08] MEDS: FEOSOL PO SCH ×2 (10:19→21:36)
[2019-01-08] MEDS: COLACE PO SCH ×2 (10:19→21:36)
[2019-01-08] MEDS ORDERED: DERMOPLAST TP PRN (22:33)
[2019-01-09] MEDS: IBUPROFEN PO SCH (05:06)
--- NOTE | 2019-01-09 08:34 | Discharge Summary ---
Providers - Providers Date of Admission: 01/06/19 19:35 Date of discharge: 01/09/19 Attending physician: MARTIN KLEIN Primary care physician: MARTIN KLEIN Hospitalization Reason for admission: IOL per MFM for DM, IGUR Condition: Good Pertinent studies: post delivery H&H 02/08.9, acute anemia d/t blood loss from delivery, patient is asymptomatic, Fe ordered Procedures: Hospital course: complicated by PPH, stable. uneventful course Disposition: DC-01 TO HOME OR SELFCARE Core Measure Documentation - Palliative Care Palliative Care/ Comfort Measures: Not Applicable - Core Measures Any of the following diagnoses?: none Exam - Constitutional Vitals: Temp Pulse Resp BP Pulse Ox 98.4 F 88 20 121/83 100 01/08/19 23:38 01/08/19 23:38 01/09/19 05:06 01/08/19 23:38 01/08/19 23:38 General appearance: Present: no acute distress, well-nourished - EENT Eyes: Present: PERRL ENT: hearing intact, clear oral mucosa - Neck Neck: Present: supple, normal ROM - Respiratory Respiratory effort: normal Respiratory: bilateral: CTA - Cardiovascular Heart Sounds: Present: S1 & S2. Absent: rub, click - Extremities Extremities: pulses symmetrical, No edema Peripheral Pulses: within normal limits - Abdominal General gastrointestinal: Present: soft, non-tender, non-distended, normal bowel sounds Female genitourinary: Present: normal - Integumentary Integumentary: Present: clear, warm, dry - Musculoskeletal Musculoskeletal: gait normal, strength equal bilaterally - Psychiatric Psychiatric: appropriate mood/affect, intact judgment & insight - Neurologic Neurologic: CNII-XII intact, moves all extremities - Additional findings Additional findings: Patient resting comfortably in bed, reports feeling well, denies any complaints or concerns. FF, ML, U/2. Vaginal bleeding is small, patient denies any heavy bleeding or clots. She reports pain is well controlled with medication. She is breast and bottle feeding, reports both are going well, denies any breast complaints. DWP post delivery H&H, she denies any dizziness or feeling faint with ambulation or position changed. Encouraged increased water intake, frequent ambulation. VSSAF. Plan Activity: no restrictions Diet: regular Wound: keep clean and dry Follow up with: WHITE,MABEL K, CNM [Advanced Practice Nurse] - 6 Weeks (Congratulations! Please call [phone] to schedule your appointment in 6 weeks. Call sooner with any questions or concerns. ) Prescriptions: Docusate Sodium [Colace] 100 mg PO BID PRN #60 capsule PRN Reason: Constipation Ferrous Sulfate [Feosol 325 MG tab] 325 mg PO BID #60 tablet
[2019-01-09] MEDS: COLACE PO SCH (09:18)
[2019-01-09] MEDS: FEOSOL PO SCH (09:18)
[2019-01-09 13:20] VITALS: BP 116/64
== END 2019-01-09 13:25 | disposition home or self-care (01) | DRG 774 ==
LOC: LD 19:35 → OB 01-07 22:53
PROVIDERS: ADMIT Obstetrics & Gynecology; ATTEND Obstetrics & Gynecology
PROC: 10E0XZZ Delivery of Products of Conception, External Approach (ICD-10-PCS; principal; 2019-01-07)
PROC: 0HQ9XZZ Repair Perineum Skin, External Approach (ICD-10-PCS; 2019-01-07)
PROC: 3E0234Z Introduction of Serum, Toxoid and Vaccine into Muscle, Percutaneous Approach (ICD-10-PCS; 2019-01-08)
DX: O36.5930 Maternal care for other known or suspected poor fetal growth, third trimester, not applicable or unspecified (principal); O72.1 Other immediate postpartum hemorrhage; E11.9 Type 2 diabetes mellitus without complications; O24.12 Pre-existing type 2 diabetes mellitus, in childbirth; O99.52 Diseases of the respiratory system complicating childbirth; O99.344 Other mental disorders complicating childbirth; O99.354 Diseases of the nervous system complicating childbirth; Z83.3 Family history of diabetes mellitus; Z82.49 Family history of ischemic heart disease and other diseases of the circulatory system; Z37.0 Single live birth; Z3A.39 39 weeks gestation of pregnancy; Z79.4 Long term (current) use of insulin; B00.9 Herpesviral infection, unspecified; F32.9 Major depressive disorder, single episode, unspecified; F41.9 Anxiety disorder, unspecified; J45.909 Unspecified asthma, uncomplicated; O69.81X0 Labor and delivery complicated by cord around neck, without compression, not applicable or unspecified; O70.0 First degree perineal laceration during delivery; O90.81 Anemia of the puerperium; D62 Acute posthemorrhagic anemia; Z23 Encounter for immunization
CPT/HCPCS: 36415; 80307; 82962; 85014; 85018; 85025; 86592; 86850; 86900; 86901; 88307; G0378; J0595; J2210; J2405; J2590; J7120

== ENCOUNTER 2019-04-20 09:56 | Emergency (ER) | payer MEDICAID ==
[2019-04-20 10:07] VITALS: BP 142/86
--- NOTE | 2019-04-20 10:14 | Emergency Department Report ---
Stated Complaint: COUGH/DIARRHEA/VOMITING Time Seen by Provider: 04/20/19 10:06 - HPI History of Present Illness: 28 y/o female comes in for cold like symptoms times 2 days. No fever no chills some diarrhea. No abdominal . - Exam Vital Signs: Vital Signs 04/20/19 10:05 Temperature 98.3 F Pulse Rate 83 Respiratory 18 Rate Blood Pressure 142/86 O2 Sat by Pulse 100 Oximetry Physical Exam: AxO times 3 NAD Heart RRR. Chest CTA MSE screening note: Focused history and physical exam performed. Due to findings the following was ordered: Discussed with patient to increased fluids take robitussin. ED Disposition for MSE Condition: Stable
== END 2019-04-20 12:31 | disposition home or self-care (01) ==
LOC: ED 09:56
DX: R05 Cough (principal); J00 Acute nasopharyngitis [common cold]; Z88.8 Allergy status to other drugs, medicaments and biological substances; Z88.0 Allergy status to penicillin

== ENCOUNTER 2021-04-17 18:17 | Emergency (ER) | payer MEDICAID ==
[2021-04-17] MEDS ORDERED: CYCLOBENZAPRINE 10 MG TAB PO ONE (18:55)
[2021-04-17] MEDS ORDERED: IBUPROFEN 600 MG TAB PO ONE (18:55)
--- NOTE | 2021-04-17 19:19 | Emergency Department Report ---
ED Fall HPI - General Chief Complaint: Fall Stated Complaint: FELL AND HIT HER HEAD Time Seen by Provider: 04/17/21 18:52 Source: patient Mode of arrival: Ambulatory - History of Present Illness Initial Comments: Patient is a 30-year-old female presents emergency room complaints of a fall that occurred earlier today. Patient states that she was coming down the stairs in her home and that there were some shoes in the way and she tripped over the shoes. She states that she fell down approximately 6 steps. She states that her right leg fell underneath her. She states since then she has been having low back pain, right hip pain, right knee pain, headache. She states that she feels a tingling sensation in her right leg but denies any complete numbness. She denies any vision changes, loss of consciousness, vomiting, weakness, bowel or bladder incontinence. Patient is ambulatory. Allergy to lorazepam, penicillin, risperidone. - Related Data Home Medications Medication Instructions Recorded Confirmed Last Taken ALPRAZolam [Xanax TAB] 1 mg PO HS 08/14/20 08/14/20 08/19/20 Albuterol Mdi (or & Nicu Only) 2 puff IH PRN PRN 08/14/20 08/20/20 5 Months Ago [ProAir HFA Inhaler] ~03/22/20 Dilantin 200 mg PO BID 08/14/20 08/14/20 08/19/20 Fluticasone/Salmeterol [Advair 1 puff IH BID 08/14/20 08/14/20 08/19/20 Diskus 100-50 mcg] Ibuprofen [Motrin] 600 mg PO PRN PRN 08/14/20 08/20/20 1 Week Ago ~08/13/20 Keppra TAB 2,250 mg PO BID 08/14/20 08/20/20 08/19/20 Loratadine [Claritin] 10 mg PO DAILY 08/14/20 08/14/20 08/19/20 TEGretol 100 mg PO BID 08/14/20 08/14/20 08/19/20 lamoTRIgine [LaMICtal] 200 mg PO BID 08/14/20 08/14/20 08/19/20 Previous Rx's Medication Instructions Recorded Last Taken Type Docusate Sodium [Colace] 100 mg PO BID PRN #60 capsule 01/09/19 Unknown Rx Ferrous Sulfate [Feosol 325 MG tab] 325 mg PO BID #60 tablet 08/22/20 Unknown Rx Ibuprofen [Motrin] 800 mg PO TID PRN #30 tablet 08/22/20 Unknown Rx oxyCODONE /ACETAMINOPHEN [Percocet 1 - 2 tab PO Q6HR PRN #20 tablet 08/22/20 Unknown Rx 5/325 mg] Naproxen 375 mg PO BID PRN #14 tablet 04/17/21 Unknown Rx methOCARBAMOL [Robaxin TAB] 500 mg PO BID PRN #14 tab 04/17/21 Unknown Rx Allergies Allergy/AdvReac Type Severity Reaction Status Date / Time lorazepam [From Ativan] Allergy Rash Verified 11/05/18 21:04 Penicillins Allergy Angioedema Verified 11/05/18 21:04 risperidone [From Risperdal] Allergy Rash Verified 11/05/18 21:04 ED Review of Systems ROS: Stated complaint: FELL AND HIT HER HEAD Other details as noted in HPI Comment: All other systems reviewed and negative ED Past Medical Hx - Past Medical History Hx Hypertension: No Hx Heart Attack/AMI: No Hx Congestive Heart Failure: No Hx Diabetes: Yes (type 1 diabetic- DIET CONTROLLED) Hx Deep Vein Thrombosis: No Hx GERD: Yes Hx Liver Disease: No Hx Renal Disease: No Hx Sickle Cell Disease: No Hx Arthritis: No Hx Headaches / Migraines: Yes (MIGRAINES) Hx Seizures: Yes (LAST TIME OVER 2 YRS AGO. [facility]) Hx Asthma: Yes (USES INHALER DAILY) Hx COPD: No Hx Tuberculosis: No Hx HIV: No Additional medical history: Vaginal delivery x 2 - Surgical History Hx Coronary Stent: No Hx Pacemaker: No Hx Internal Defibrillator: No - Social History Smoking Status: Never Smoker - Medications Home Medications: Home Medications Medication Instructions Recorded Confirmed Last Taken Type Docusate Sodium [Colace] 100 mg PO BID PRN #60 capsule 01/09/19 08/20/20 Unknown Rx ALPRAZolam [Xanax TAB] 1 mg PO HS 08/14/20 08/14/20 08/19/20 History Albuterol Mdi (or & Nicu Only) 2 puff IH PRN PRN 08/14/20 08/20/20 5 Months Ago History [ProAir HFA Inhaler] ~03/22/20 Dilantin 200 mg PO BID 08/14/20 08/14/20 08/19/20 History Fluticasone/Salmeterol [Advair 1 puff IH BID 08/14/20 08/14/20 08/19/20 History Diskus 100-50 mcg] Ibuprofen [Motrin] 600 mg PO PRN PRN 08/14/20 08/20/20 1 Week Ago History ~08/13/20 Keppra TAB 2,250 mg PO BID 08/14/20 08/20/20 08/19/20 History Loratadine [Claritin] 10 mg PO DAILY 08/14/20 08/14/20 08/19/20 History TEGretol 100 mg PO BID 08/14/20 08/14/20 08/19/20 History lamoTRIgine [LaMICtal] 200 mg PO BID 08/14/20 08/14/20 08/19/20 History Ferrous Sulfate [Feosol 325 MG tab] 325 mg PO BID #60 tablet 08/22/20 Unknown Rx Ibuprofen [Motrin] 800 mg PO TID PRN #30 tablet 08/22/20 Unknown Rx oxyCODONE /ACETAMINOPHEN [Percocet 1 - 2 tab PO Q6HR PRN #20 tablet 08/22/20 Unknown Rx 5/325 mg] Naproxen 375 mg PO BID PRN #14 tablet 04/17/21 Unknown Rx methOCARBAMOL [Robaxin TAB] 500 mg PO BID PRN #14 tab 04/17/21 Unknown Rx ED Physical Exam - General Limitations: No Limitations General appearance: alert, in no apparent distress - Head Head exam: Present: atraumatic, normocephalic - Eye Eye exam: Present: normal appearance - ENT ENT exam: Present: mucous membranes moist - Neck Neck exam: Present: normal inspection, full ROM. Absent: tenderness, meningismus - Respiratory Respiratory exam: Present: normal lung sounds bilaterally. Absent: respiratory distress, wheezes, rales, rhonchi, stridor, chest wall tenderness, accessory muscle use, decreased breath sounds, prolonged expiratory - Cardiovascular Cardiovascular Exam: Present: regular rate, normal rhythm, normal heart sounds. Absent: systolic murmur, diastolic murmur, rubs, gallop - Extremities Exam Extremities exam: Present: other (ttp to the right anterior knee and right lateral hip, no deformity, FROM of the RLE, neurovascularly intact) - Back Exam Back exam: Present: normal inspection, full ROM, paraspinal tenderness (bilateral paraspinal lumbar ttp), vertebral tenderness (mild midline lumbar ttp, no step offs, no deformities) - Neurological Exam Neurological exam: Present: alert, oriented X3, CN II-XII intact, normal gait. Absent: motor sensory deficit - Psychiatric Psychiatric exam: Present: normal affect, normal mood - Skin Skin exam: Present: warm, dry, intact ED Course Vital Signs 04/17/21 04/17/21 18:28 19:01 Temperature 98.8 F Pulse Rate 83 Respiratory 20 16 Rate Blood Pressure 122/84 [Right] O2 Sat by Pulse 99 Oximetry ED Medical Decision Making - Radiology Data Radiology results: report reviewed X-RAY SPINE LUMBOSACRAL 3 VIEWS INDICATION: Fall, back pain COMPARISON: None FINDINGS: Vertebral body heights and disc spaces are preserved. Alignment is maintained. No acute displaced fracture identified. CONCLUSION: No acute abnormality identified. Signer Name: Jeremiah Pena MD Signed: 04/17/2021 7:20 PM Workstation Name: [email or web address] RIGHT KNEE 3 VIEW(S) INDICATION / CLINICAL INFORMATION: fall, right knee pain COMPARISON: None available. FINDINGS: BONES / JOINT(S): No acute fracture or subluxation. No significant arthritis. No significant effusion. SOFT TISSUES: No significant abnormality. ADDITIONAL FINDINGS: None. Signer Name: Jeremiah Pena MD Signed: 04/17/2021 7:21 PM Workstation Name: [email or web address] X-RAY HIP 2 VIEWS WITH PELVIS INDICATION / CLINICAL INFORMATION: fall, right hip pain COMPARISON: None available. FINDINGS: BONES / JOINT(S): No acute fracture or subluxation. No significant arthritis. SOFT TISSUES: No significant abnormality. ADDITIONAL FINDINGS: None. Signer Name: Jeremiah Pena MD Signed: 04/17/2021 7:22 PM Workstation Name: [email or web address] - Medical Decision Making Patient is a 30-year-old female presents emergency room complaints of a fall that occurred earlier today. Patient states that she was coming down the stairs in her home and that there were some shoes in the way and she tripped over the shoes. She states that she fell down approximately 6 steps. She states that her right leg fell underneath her. She states since then she has been having low back pain, right hip pain, right knee pain, headache. She states that she feels a tingling sensation in her right leg but denies any complete numbness. She denies any vision changes, loss of consciousness, vomiting, weakness, bowel or bladder incontinence. Patient is ambulatory. Allergy to lorazepam, penicillin, risperidone. Vitals are normal. On exam: ttp to the right anterior knee and right lateral hip, no deformity, FROM of the RLE, neurovascularly intact, bilateral lumbar and mild midline lumbar tenderness palpation, no step- offs, deformities, no focal neuro deficits, ambulatory without difficulty. X- ray lumbar spine FINDINGS: Vertebral body heights and disc spaces are preserved. Alignment is maintained. No acute displaced fracture identified.CONCLUSION: No acute abnormality identified. X-ray right knee BONES / JOINT(S): No acute fracture or subluxation. No significant arthritis. No significant effusion.SOFT TISSUES: No significant abnormality. X-ray right hip BONES / JOINT(S): No acute fracture or subluxation. No significant arthritis.SOFT TISSUES: No significant abnormality. Patient given prescription for medication. Advised Please take medication as prescribed. May use ice pack, heating pad, rest, epsom salt bath. Follow-up with a primary care doctor. Follow-up with orthopedic doctor. Return to emergency room for any new or worsening symptoms. Critical care attestation.: If time is entered above; I have spent that time in minutes in the direct care of this critically ill patient, excluding procedure time. ED Disposition Clinical Impression: Right hip pain Fall Qualifiers: Encounter type: initial encounter Qualified Code(s): W19.XXXA - Unspecified fall, initial encounter Low back pain Qualifiers: Chronicity: acute Back pain laterality: bilateral Sciatica presence: unspecified whether sciatica present Qualified Code(s): M54.50 - Low back pain, unspecified Right knee pain Qualifiers: Chronicity: acute Qualified Code(s): M25.561 - Pain in right knee Disposition: 01 HOME / SELF CARE / HOMELESS Is pt being admited?: No Does the pt Need Aspirin: No Condition: Stable Instructions: Musculoskeletal Pain Additional Instructions: Please take medication as prescribed. May use ice pack, heating pad, rest, epsom salt bath. Follow-up with a primary care doctor. Follow-up with orthopedic doctor. Return to emergency room for any new or worsening symptoms. Prescriptions: Naproxen 375 mg PO BID PRN #14 tablet PRN Reason: pain methOCARBAMOL [Robaxin TAB] 500 mg PO BID PRN #14 tab PRN Reason: muscle spasm/pain Referrals: JOHNATHAN FERRIS MD [Primary Care Provider] - 3-5 Days [facility] [Provider Group] - 3-[address] PINK MD [Staff Physician] - 3-5 Days Time of Disposition: 20:31 Print Language: PRYDEINIG
--- NOTE | 2021-04-17 20:24 | XRay Report ---
X-RAY SPINE LUMBOSACRAL 3 VIEWS INDICATION: Fall, back pain COMPARISON: None FINDINGS: Vertebral body heights and disc spaces are preserved. Alignment is maintained. No acute dis placed fracture identified. CONCLUSION: No acute abnormality identified. Signer Name: Jeremiah Pena MD Signed: 04/17/2021 8:20 PM Workstation Name: [id number]
--- NOTE | 2021-04-17 20:25 | XRay Report ---
RIGHT KNEE 3 VIEW(S) INDICATION / CLINICAL INFORMATION: fall, right knee pain COMPARISON: None available. FINDINGS: BONES / JOINT(S): No acute fracture or subluxation. No significant arthritis. No significant effusion . SOFT TISSUES: No significant abnormality. ADDITIONAL FINDINGS: None. Signer Name: Jeremiah Pena MD Signed: 04/17/2021 8:21 PM Workstation Name: [id number]
--- NOTE | 2021-04-17 20:26 | XRay Report ---
X-RAY HIP 2 VIEWS WITH PELVIS INDICATION / CLINICAL INFORMATION: fall, right hip pain COMPARISON: None available. FINDINGS: BONES / JOINT(S): No acute fracture or subluxation. No significant arthritis. SOFT TISSUES: No significant abnormality. ADDITIONAL FINDINGS: None. Signer Name: Jeremiah Pena MD Signed: 04/17/2021 8:22 PM Workstation Name: [id number]
[2021-04-17 21:23] VITALS: BP 109/69
== END 2021-04-17 21:06 | disposition home or self-care (01) ==
LOC: ED 18:17
DX: M54.50 Low back pain, unspecified (principal); M25.551 Pain in right hip; M25.561 Pain in right knee; E10.8 Type 1 diabetes mellitus with unspecified complications; K21.9 Gastro-esophageal reflux disease without esophagitis; G43.909 Migraine, unspecified, not intractable, without status migrainosus; J45.909 Unspecified asthma, uncomplicated; Z88.0 Allergy status to penicillin; Z88.8 Allergy status to other drugs, medicaments and biological substances; W10.9XXA Fall (on) (from) unspecified stairs and steps, initial encounter; Y93.89 Activity, other specified; Y92.009 Unspecified place in unspecified non-institutional (private) residence as the place of occurrence of the external cause; Y99.8 Other external cause status
CPT/HCPCS: 72100; 99283

== ENCOUNTER 2021-11-23 21:21 | Emergency (ER) | payer MEDICAID | END 2021-11-24 05:25 | disposition left against medical advice (07) | LOC: ED 21:21 | DX: R10.9 Unspecified abdominal pain (principal); Z53.21 Procedure and treatment not carried out due to patient leaving prior to being seen by health care provider ==